=== PATIENT | female | born 1965 | race Caucasian/White ===

== ENCOUNTER 2022-11-05 13:33 | Outpatient (REF) | payer MEDICARE, MEDICAID, SELFPAY ==
--- NOTE | ~2022-11-05 | US_ITS ---
EXAMINATION: US SOFT TISSUE EXTREMITY CLINICAL INFORMATION: Palpable abnormality in the right upper arm. COMPARISON: None TECHNIQUE: Linear transducer grayscale and color Doppler examination with attention to the region of the right upper arm. FINDINGS: The region of the palpable lump is a mildly heterogeneous focus, mildly echogenic relative to adjacent subcutaneous fat with smooth margins measuring approximately 5.6 x 3.1 x 2.2 cm. Color Doppler showed no abnormal vascular flow. US/US extremity nonvascular sapp IMPRESSION: Probable lipoma demonstrating benign features and correlates with the palpable lump. * If these findings persist or enlarge, short-term repeat targeted soft tissue ultrasound can be performed as clinically indicated to assess for change.
== END 2022-11-05 13:34 | disposition home or self-care (01) ==
LOC: HO.HMGCX 13:33
PROVIDERS: PCP Pediatrics; Visit Provider Family Medicine
DX: M79.89 Other specified soft tissue disorders (principal)
CPT/HCPCS: 76882

== ENCOUNTER 2022-11-26 08:46 | Outpatient (AMB) | payer MEDICARE, MEDICAID, SELFPAY ==
--- NOTE | 2022-11-26 08:48 | AM.OFFWIN_ITS ---
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 Reporting symptoms of sinus congestion, sore throat and difficulty swallowing. Low-grade fever. No family member is sick. No recent travel. Patient reports symptoms of malaise and fatigue. PFSH Social History Patient Tobacco Use Status: Current someday Tobacco user Physical Exam Vital Signs: Last Vital Signs Temp 98 F 11/26/22 08:49 Pulse 101 H 11/26/22 08:49 BP 100/58 L 11/26/22 08:49 Pulse Ox 93 11/26/22 08:49 Oxygen Delivery Method Room Air 11/26/22 08:49 BMI result Body Mass Index 28.2 Assessment & Plan Assessment & Plan (1) Upper respiratory tract infection: Code(s): J06.9 - Acute upper respiratory infection, unspecified Plan: Antibiotics ordered. Increase fluid intake. Tylenol for aches and pains. If symptoms worsen, follow-up here for a recheck. Coding Level of Care Code Est Pt Level 3 (27168) Diagnoses Upper respiratory tract infection J06.9
[2022-11-26 08:49] VITALS: BP 100/58; PULSE 101; TEMP 36.6; O2SAT 93; BMI 28.2
== END 2022-11-26 10:13 | disposition home or self-care (01) ==
PROVIDERS: PCP Pediatrics; Visit Provider Internal Medicine
DX: J06.9 Acute upper respiratory infection, unspecified (principal)
CPT/HCPCS: 99213

== ENCOUNTER 2023-01-28 08:51 | Outpatient (REF) | payer MEDICARE, MEDICAID, SELFPAY ==
[2023-01-28 14:50] LABS: MANUAL DIFF FLAG NO
[2023-01-28 14:56] LABS: Basophils Absolute Auto 0.1 X10*3/uL (0.0-0.2); Basophils Percent Auto 0.9 % (0-2); Eosinophils Absolute Auto 0.1 X10*3/uL (0.0-0.4); Eosinophils Percent Auto 1.1 % (0-4); Hematocrit 39.1 % (37.0-47.0); Hemoglobin 12.4 g/dl (12.0-16.0); Imm Gran Abs Auto 0.02 X10*3/uL (0.00-0.03); Imm Gran Pct Auto 0.4 % (0.0-0.4); Lymphocytes Absolute Auto 2.5 X10*3/uL (1.2-4.9); Lymphocytes Percent Auto 43.8 % (20-40); Mean Corpuscular HGB Conc 31.7 g/dl (31.0-35.0); Mean Corpuscular Volume 100.8 fL (80.0-98.0); Mean Platelet Volume 9.4 fL (9.4-12.3); Monocytes Absolute Auto 0.4 X10*3/uL (0.1-1.2); Monocytes Percent Auto 7.4 % (2-11); Neutrophils Absolute Auto 2.7 x10*3/uL (2.0-8.3); Neutrophils Percent Auto 46.4 % (45-73); Platelet Count 608 X10*3/uL (160-400); Red Blood Count 3.88 X10*6/uL (4.20-5.50); White Blood Count 5.7 X10*3/uL (4.8-10.8)
[2023-01-28 15:02] LABS: Estimated Average Glucose 97 mg/dL
[2023-01-28 15:27] LABS: Alanine Aminotransferase 28 U/L (0-31); Alkaline Phosphatase 79 U/L (39-117); Anion Gap 16 (12-20); Aspartate Amino Transferase 24 U/L (5-31); Bilirubin Direct 0.2 mg/dL (0.0-0.5); Bilirubin Total 0.4 mg/dL (0.0-1.0); Blood Urea Nitrogen 14 mg/dL (9-16); Calcium 10.7 mg/dL (8.4-10.2); Carbon Dioxide 25 mmol/L (22-29); Chloride 105 mmol/L (96-108); Cholesterol 192 mg/dL (<200); Estimated Glomerular Filt Rate > 60; Glucose Fasting 80 mg/dL (60-99); HDL Cholesterol 39 mg/dL (>40); LDL Cholesterol Calculated 123 mg/dL (<100); Potassium 4.3 mmol/L (3.3-5.1); Sodium 142 mmol/L (135-145); TSH reflex Free T4 3.23 uIU/mL (0.32-4.0); Total Protein 7.8 g/dL (6.5-8.0); Triglycerides 152 mg/dL (<150); Vitamin D 25-OH Total 29.5 ng/mL (>30)
[2023-01-30 07:57] LABS: HBS Num1 1.49 mIU/mL (0-7.99); HBsAGNum1 0.55 S/CO (0.00-0.99); Hepatitis A Antibody IgM 0.21 Index (0-0.79); Hepatitis B Core Antibody Nonreactive (Nonreactive); Hepatitis B Surface Antigen Negative (Negative); ~HepC Num1 0.14 S/CO (0.00-0.79); ~Hepatitis A Antibody IgM Nonreactive (Nonreactive); ~Hepatitis B Surface Antibody NONREACTIVE (Nonreactive); ~Hepatitis C Antibody Nonreactive (Nonreactive)
== END 2023-01-28 08:52 | disposition home or self-care (01) ==
LOC: HO.CHCLDS 08:51
PROVIDERS: Visit Provider Pediatrics
DX: Z00.00 Encounter for general adult medical examination without abnormal findings (principal); E66.3 Overweight; Z20.2 Contact with and (suspected) exposure to infections with a predominantly sexual mode of transmission; Z11.59 Encounter for screening for other viral diseases; Z72.89 Other problems related to lifestyle
CPT/HCPCS: 36415; 80048; 80061; 80076; 82306; 83036; 84443; 85025; 86704; 86706; 86709; 86803; 87340

== ENCOUNTER 2024-07-16 10:49 | Emergency (ER) | payer MEDICARE, MEDICAID, SELFPAY ==
--- NOTE | ~2024-07-16 | CT_ITS ---
CLINICAL HISTORY: abd pain diarrhea CT abdomen and pelvis with contrast Comparison: CT - CT ABDOMEN PELVIS W IV CON - 07/16/24 12:18 EDT Findings: Mild patchy left basilar airspace opacity. Gallbladder is within normal limits. Solid organs are within normal limits. No urolithiasis. No bowel obstruction, pneumoperitoneum, or pneumatosis. Pelvic contents unremarkable. Normal appendix. The bones are intact. IMPRESSION: 1. Mild left basilar pneumonia. This document has been electronically signed by: Mariya Naqvi MD on 07/16/2024 13:23:40
[2024-07-16 10:54] VITALS: BP 138/88; PULSE 85; RESP 16; TEMP 36.6; O2SAT 98; BMI 36.0
--- NOTE | 2024-07-16 11:10 | ED.GENADULT ---
HPI - General Adult General Chief complaint: General Medical Stated complaint: blood in stool Time Seen by Provider: 07/16/24 11:09 Source: patient Mode of arrival: ambulatory Limitations: no limitations History of Present Illness ED Provider: Nick LIM narrative: Patient is a 58-year-old female presents today with having diarrhea for the last 5 days. Patient now noticed blood. She took a picture of it. The stool otherwise was yellow in color. Patient denies any traveling history. No fever no chills no history of colonoscopy. Patient is from home. Have some pain that radiates from the back to the front. Patient denies any recent antibiotics. Denies any sick contact. Patient is from home. Related Data Home Medications ?Medication ?Instructions ?Recorded ?Confirmed gabapentin 300 mg capsule 300 mg PO TID 11/26/22 11/26/22 naproxen 500 mg tablet 500 mg PO BID 11/26/22 11/26/22 Previous Rx's ?Medication ?Instructions ?Recorded albuterol sulfate 90 mcg/actuation 1 inh inhalation QID PRN shortness 11/26/22 aerosol inhaler (Ventolin HFA) of breath or wheezing #8.5 grams azithromycin 250 mg tablet See Rx Instructions PO .COMPLEX #6 11/26/22 tabs prednisone 20 mg tablet 60 mg (3 x 20 mg) PO DAILY #9 tabs 11/26/22 levofloxacin 500 mg tablet 500 mg PO DAILY #7 tabs 07/16/24 Allergies Allergy/AdvReac Type Severity Reaction Status Date / Time No Known Allergies Allergy Verified 07/16/24 10:56 [No Known Allergies*] Review of Systems Review of Systems: No fever no chills no diaphoresis. No recent history of colonoscopy or endoscopy. Yes all other systems are reviewed and are negative PMFSH Past Medical History Attestation statement: The following information was validated with the patient. Social History Social History Alcohol intake: current Alcohol intake frequency: a few times a week Patient Tobacco Use Status: Current someday Tobacco user Smoked in Last 30 Days: Yes Use of substances other than those prescribed or required for medical reasons: No Advance Directives: No Advance Directives Information Provided: No Do you have a plan to hurt others: No Plan Physical Exam ED Vital Signs: Vital Signs - 24 hr 07/16/24 10:54 07/16/24 11:34 07/16/24 11:35 Temperature 97.9 F Pulse Rate 85 78 89 Respiratory Rate 16 Blood Pressure 138/88 102/71 130/82 Pulse Oximetry 98 Oxygen Delivery Method Room Air 07/16/24 11:36 07/16/24 12:51 Temperature Pulse Rate 84 80 Respiratory Rate 16 Blood Pressure 136/78 114/72 Pulse Oximetry 96 Oxygen Delivery Method Room Air BMI result Body Mass Index 36.0 Appearance: Alert. Oriented X3. No acute distress. Eyes: Pupils equal, round and reactive to light. ENT: Pharynx normal. Neck: Normal inspection. Neck supple. No lymph nodes noted. No crepitus CVS: Normal heart rate and rhythm. Pulses normal. Normal S1 and S2 Respiratory: No respiratory distress. Breath sounds normal. No Wheezing. No rales Abdomen: Soft and nontender. No rigidity. No distention. good BS x4 Rectal exam done with nurse present. It shows just mucus. No gross blood noted. Skin: Skin warm and dry. Normal skin color. Normal skin turgor. Extremities: No lower extremity edema. Neurovascular intact to all extremities. No Lacerations. No Rash Neuro: Oriented X 3. No motor deficit. No sensory deficit. Moving all extermities. No slurred speech Medications Administered Discontinued Medications Generic Name Dose Route Start Last Admin Trade Name Freq PRN Reason Stop Dose Admin Sodium Chloride 1,000 mls @ 999 mls/hr 07/16/24 11:30 07/16/24 12:48 Ns IV 07/16/24 12:30 Infused .Q1H1M SCOTTY Infusion Iohexol 100 ml 07/16/24 12:34 07/16/24 12:35 Iohexol 350 Mg/Ml 100 Ml Infus..Btl IV 07/16/24 12:35 85 ml ONCE ONE Administration Medical Decision Making Medical Decision Making MDM Narrative: patient not on blood thinners. Been having diarrhea for few days now noticing blood in the stool. Patient rectal exam showed just mucus. We did try to [facility] for guaiac but they could not do it properly. Patient's hemoglobin today is 14.2. Baseline is 12. LFTs are normal. Patient's urine showed positive nitrate trace leukocyte esterase lots of contamination and some bacteria. the chest CT abdomen pelvis showed a question infiltrate at the left base. Given the bloody diarrhea the possible pneumonia and the possible UTI. Elected to start patient on Levaquin to cover all 3. Have patient follow-up on an outpatient basis a she is well-appearing. Currently in stable condition. Differential Diagnosis Differential Diagnoses: The differential diagnosis associated with the presentation includes Colitis, GI bleed, UTI Admission/Observation Consideration of admission/observation: Escalation of care including admission/observation considered Lab Data MDM Lab Attestation statement: I reviewed the patient's lab results. 07/16/24 11:11 07/16/24 11:30 Labs: Lab Results 07/16/24 07/16/24 07/16/24 Range/Units 11:11 11:30 11:43 WBC 8.4 (4.8-10.8) X10*3/uL RBC 3.99 L (4.20-5.50) X10*6/uL Hgb 14.2 (12.0-16.0) g/dl Hct 41.1 (37.0-47.0) % MCV 103.0 H (80.0-98.0) fL MCH 35.6 H (27.0-33.0) pg MCHC 34.5 (31.0-35.0) g/dl RDW 13.4 (11.0-16.0) % Plt Count 293 D (160-400) X10*3/uL MPV 8.8 L (9.4-12.3) fL Immature Gran % (Auto) 0.4 (0.0-0.4) % Neut % (Auto) 66.1 (45-73) % Lymph % (Auto) 24.3 (20-40) % [place] % (Auto) 6.5 (2-11) % Eos % (Auto) 2.0 (0-4) % Baso % (Auto) 0.7 (0-2) % Lymph # (Auto) 2.0 (1.2-4.9) X10*3/uL [place] # (Auto) 0.5 (0.1-1.2) X10*3/uL Eos # (Auto) 0.2 (0.0-0.4) X10*3/uL Baso # (Auto) 0.1 (0.0-0.2) X10*3/uL Abs Immat Gran (auto) 0.03 (0.00-0.03) X10*3/uL Absolute Neuts (auto) 5.5 (2.0-8.3) x10*3/uL Absolute Nucleated RBC 0.000 (0.0-0.012) X10*3/uL Nucleated RBC % (auto) 0.0 (0.0-0.2) /100WBC Hold Purple Top SEE NOTE PT 11.2 (10.9-12.4) SEC INR 1.0 (0.9-1.1) Sodium 141 (135-145) mmol/L Potassium 4.0 (3.3-5.1) mmol/L Chloride 111 H (96-108) mmol/L Carbon Dioxide 23 (22-29) mmol/L Anion Gap 11 L (12-20) BUN 18 H (9-16) mg/dL Creatinine 0.94 (0.5-1.4) mg/dL Estim Creat Clear Calc 72.1 Estimated GFR > 60 Random Glucose 99 (60-115) mg/dL Calcium 8.9 D (8.4-10.2) mg/dL Total Bilirubin 0.7 (0.0-1.0) mg/dL Direct Bilirubin 0.2 (0.0-0.5) mg/dL AST 38 H (5-31) U/L ALT 39 H (0-31) U/L Alkaline Phosphatase 71 (39-117) U/L Total Protein 7.3 (6.5-8.0) g/dL Albumin 4.4 (3.5-5.0) g/dL Lipase 26 (8-78) U/L Urine Color Yellow Urine Appearance Cloudy Urine pH 5.5 (5.0-9.0) Ur Specific [place] >= 1.030 H (1.005-1.025) Urine Protein 30 (1+) H (Neg-Trace) mg/dL Urine Glucose (UA) Negative (Negative) mg/dL Urine Ketones Trace (Negative) mg/dL Urine Blood Negative (Negative) Urine Nitrite Positive H (Negative) Ur Leukocyte Esterase Trace H (Negative) Urine RBC 0-2 (0-2) /HPF Urine WBC 11-20 (0-5) /HPF Ur Squamous Epith Cells 11-20 (0-2) /HPF Urine Bacteria 2+ (None Seen) Hyaline Casts 0-2 (0-2) /LPF Independent Interpretation I performed an independent interpretation of an: CT Scan ( grossly negative) Radiology Impression Discussion of test interpretation with radiology: I have reviewed the radiologist's reading. Social Determinants Patient?s care significantly limited by Social Determinants of Health including: Problems related to primary support group Discharge Plan Discharge Clinical Impression: Colitis, Urinary tract infection, Pneumonia Instructions: Urinary Tract Infection in Women (DC), Acute Diarrhea (ED), Pneumonia (ED) Prescriptions: New levofloxacin 500 mg tablet 500 mg PO DAILY Qty: 7 0RF No Action gabapentin 300 mg capsule 300 mg PO TID naproxen 500 mg tablet 500 mg PO BID azithromycin 250 mg tablet See Rx Instructions PO .COMPLEX Qty: 6 0RF Rx Instructions: take 500 mg today (day 1), then 250 mg for 4 days (days 2-5) PO albuterol sulfate [Ventolin HFA] 90 mcg/actuation HFA aerosol inhaler 1 inh inhalation QID PRN (Reason: shortness of breath or wheezing) Qty: 8.5 1RF prednisone 20 mg tablet 60 mg PO DAILY Qty: 9 0RF Referrals: Shara Sommers MD [Primary Care Provider] - 07/19/24 Matthew Adler MD [Physician] - 07/19/24 Print Language: Marshallese
--- OUTSIDE RECORDS SUMMARY | 2024-07-16 11:13 | XMS_ITS | Encounter Summary ---
Author Organization [employer] Address [address] [place] [address] 7 [place] [address] Care Team Providers Care Utilization Management Nurse Name Role Phone Shara Sommers MD Primary Care Provider [phone] Shara Sommers MD Primary Care Provider [phone] Reason for Visit * Reason Comments Med Refill Encounter Details Date Type Department Care Team (Late st Contact Info) Description 10/07/2022 Refill [facility] MEDICINE [address] [place] [address] Shara Sommers MD [address] [place], [place] [phone] Chronic bilateral low back pain with bilateral sciatica Social History Tobacco Use Types Packs/Day Years Used Date Smoking Tobacco: Never Assessed Depression Answer Date Recorded Patient Health Questionnaire-9 Score 2 07/16/2022 Depression Answer Date Recorded Patient Health Questionnaire-2 Score 0 07/16/2022 Comments Unknown Sex and Gender Information Value Date Recorded Sex Assigned at Female 02/10/2022 10:20 AM EDT Legal Sex Female 10:20 AM EDT Gender Identity Female 04/08/2022 7:08 PM EST Sexual Orientation Straight 07/16/2022 10 :39 AM EDT documented as of this encounter Plan of Treatment Not on file documented as of this encounter Visit Diagnoses Diagnosis Chronic bilateral low back pain with bilateral sciatica documented in this encounter Additional Health Concerns Assessment Noted Time PHQ-9 Depression Total Score: 2 07/17/19 23 11:34 AM EDT documented as of this encounter Care Teams Utilization Management Nurse Relationship Specialty Start Date End Date Shara Sommers MD [address] [place], [place] [phone] PCP - General Family Medicine 04/13/18 05/03/23 Shara Sommers MD [address] [place] [address] PCP - General Internal Medicine 05/04/23 documented as of this encounter
--- OUTSIDE RECORDS SUMMARY | 2024-07-16 11:13 | XMS_ITS | Encounter Summary ---
Author Organization [employer] Address [address] [facility] 7t [place] [address] Care Team Providers Care Clother In Name Role Phone Shara Sommers MD Primary Care Provider [phone] Shara Sommers MD Primary Care Provider [phone] Reason for Visit * Reason Onset Date Comments Med Refill 09/04/2022 Encounter Details Date Type Department Care Team (Late st Contact Info) Description 09/04/2022 Refill [facility] MEDICINE [address] [place] [address] Shara Sommers MD [address] [place], [place] [phone] Chronic bilateral low back pain with bilateral [...] AM EDT documented as of this encounter Miscellaneous Notes * Telephone Encounter - Stella Parker - 09/04/2022 2:44 PM EDT Tc from Pt requesting a med refill for medication Gabapentin 300mg. Pt is requesting [address] Sommers documented in this encounter Plan of Treatment Not on file documented as of this encounter Visit Diagnoses Diagnosis Chronic bilateral low back pain with bilateral sciatica documented in this encounter Additional Health Concerns Assessment Noted Time PHQ-9 Depression Total Score: 2 07/17/19 23 11:34 AM EDT documented as of this encounter Care Teams Clother In Relationship Specialty Start Date End Date Shara Sommers MD [address] [place] [address] PCP - General Family Medicine 04/13/18 05/03/23 Shara Sommers MD [address] [place] [address] PCP - General Internal Medicine 05/04/23 documented as of this encounter
--- OUTSIDE RECORDS SUMMARY | 2024-07-16 11:13 | XMS_ITS | Encounter Summary ---
Author Organization [employer] Address [address] [facility] 7t [place] [address] Care Team Providers Care Arc Air Operator Name Role Phone Shara Sommers MD Primary Care Provider Encounter Details Date Type Department Care Team (Late st Contact Info) Description 05/18/2023 Telephone [facility] MEDICINE [address] [place] [address] Shara Sommers MD [address] [place], [place] [phone] Social History Tobacco Use Types Packs/Day Years Used Date Smoking Tobacco: Never Passive Smoke Exposure: Never Smokeless Tobacco: Never Alcohol Use Standard Drinks/Week Comments Never 0 (1 standard drink = 0.6 oz pur e alcohol) Depression Answer Date Recorded Patient Health Questionnaire-9 Score 2 07/16/2022 Housing Stability Answer Date Recorded What is your housing situation today? I have dakota james 01/28/[address] you li ve. Do you have problems with any of the following? None of the above 01/28/2023 Food Insecurity Answer Date Recorded Within the past 12 months, y ou worried that your food would run out before you got money to buy more: Sometimes True 2022 Within the past 12 months,th e food you bought just didn't last and you didn't have enough money to get more: Never True 01/28/2023 Transportation Answer Date Recorded In the past 12 months, has l ack of transportation kept you from medical appts, meetings, work or from getting things needed for daily living? No 01/28/2023 Utilities Answer Date Recorded In the past 12 months, has t he electric, gas, oil or water company threatened to shut off services in your home? No 01/28/2023 Depression Answer Date Recorded Patient Health Questionnaire-2 [...] documented as of this encounter Visit Diagnoses Not on filedocumented in this encounter Additional Health Concerns Assessment Noted Time PHQ-9 Depression Total Score: 2 07/17/19 23 11:34 AM EDT documented as of this encounter Care Teams Arc Air Operator Relationship Specialty Start Date End Date Shara Sommers MD [address] [place] [address] PCP - General Internal Medicine 05/04/23 documented as of this encounter
--- OUTSIDE RECORDS SUMMARY | 2024-07-16 11:13 | XMS_ITS | Encounter Summary ---
Author Organization [employer] Address [address] [place] [address] 7 [place] [address] Care Team Providers Care Supervisor Post Wave Name Role Phone Shara Sommers MD Primary Care Provider [phone] Shara Sommers MD Primary Care Provider [phone] Reason for Visit * Reason Comments Med Refill Encounter Details Date Type Department Care Team (Late st Contact Info) Description 08/25/2022 Refill [facility] MEDICINE [address] [place] [address] Shara Sommers MD [address] [place], [place] [phone] Chronic bilateral low back pain with bilateral [...] documented as of this encounter Care Teams Supervisor Post Wave Relationship Specialty Start Date End Date Shara Sommers MD [address] [place], [place] [phone] PCP - General Family Medicine 04/13/18 05/03/23 Shara Sommers MD [address] [place] [address] PCP - General Internal Medicine 05/04/23 documented as of this encounter
--- OUTSIDE RECORDS SUMMARY | 2024-07-16 11:13 | XMS_ITS | Encounter Summary ---
Author Organization [employer] Address [address] [facility] 7t [place] [address] Care Team Providers Care Manager Agricultural Name Role Phone Shara Sommers MD Primary Care Provider [phone] Reason for Visit * Reason Comments Med Refill Encounter Details Date Type Department Care Team (Late st Contact Info) Description 08/13/2023 Refill [facility] [address] [place], [place] [phone] Shara Sommers MD [address] [place], [place] [phone] Painful lumpy left breast; Mastitis, left, acute Social History Tobacco Use Types Packs/Day Years Used Date Smoking Tobacco: Never Passive Smoke Exposure: Never Smokeless Tobacco: Never Alcohol Use Standard Drinks/Week Comments Never 0 (1 standard drink = 0.6 oz pur e alcohol) Depression Answer Date Recorded Patient Health Questionnaire-9 Score 2 07/16/2022 Housing Stability Answer Date Recorded What is your housing situation today? I have dakotaolga james 01/28/[address] you [...] as of this encounter Visit Diagnoses Diagnosis Painful lumpy left breast Mastitis, left, acute documented in this encounter Additional Health Concerns Assessment Noted Time PHQ-9 Depression Total Score: 2 07/17/19 23 11:34 AM EDT documented as of this encounter Care Teams Manager Agricultural Relationship Specialty Start Date End Date Shara Sommers MD [address] [place] [address] PCP - General Internal Medicine 05/04/23 documented as of this encounter
--- OUTSIDE RECORDS SUMMARY | 2024-07-16 11:13 | XMS_ITS | Encounter Summary ---
Author Organization [employer] Address [address] [facility] 7 [place] [address] Care Team Providers Care Kiln Tender Name Role Phone Shara Sommers MD Primary Care Provider [phone] Shara Sommers MD Primary Care Provider [phone] Reason for Visit * Reason Onset Date Comments requesting call 11/03/2022 Encounter Details Date Type Department Care Team ([facility] st Contact Info) Description 11/03/2022 Telephone [facility] [address] [place], [place] [phone] Shara Sommers MD [address] [place] [address] requesting call Social History Tobacco Use Types Packs/Day Years [...] encounter Miscellaneous Notes * Telephone Encounter - Afua Quan - 11/03/2022 10:52 AM EDT Tc from pt requesting a call in regards to location on referral for [place]. Aerospace Technician did not see a location. Please contact pt at [phone] documented in this encounter Plan of Treatment Not on file documented as of this encounter Visit Diagnoses Not on filedocumented in this encounter Additional Health Concerns Assessment Noted Time PHQ-9 Depression Total Score: 2 07/17/19 23 11:34 AM EDT documented as of this encounter Care Teams Kiln Tender Relationship Specialty Start Date End Date Shara Sommers MD [address] [place] [address] PCP - General Family Medicine 04/13/18 05/03/23 Shara Sommers MD [address] [place] [address] PCP - General Internal Medicine 05/04/23 documented as of this encounter
--- OUTSIDE RECORDS SUMMARY | 2024-07-16 11:13 | XMS_ITS | Encounter Summary ---
Author Organization [email or web address] Address [address] [facility] 7t [place] [address] Care Team Providers Care Manufacturing Assembler Name Role Phone Shara Sommers MD Primary Care Provider [phone] Reason for Visit * Reason Onset Date Comments Med Refill 10/27/2023 Encounter Details Date Type Department Care Team (Late st Contact Info) Description 10/27/2023 Telephone [facility] MEDICINE [address] [place] [address] Shara Sommers MD [address] [place], [place] [phone] Med Refill Social History Tobacco Use Types Packs/Day Years Used Date Smoking Tobacco: Never Passive Smoke Exposure: Never Smokeless Tobacco: Never Alcohol Use Standard Drinks/Week Comments Never 0 (1 standard drink = 0.6 oz pur e alcohol) Depression Answer Date Recorded Patient Health Questionnaire-9 Score 2 07/16/2022 Housing Stability Answer Date Recorded What is your housing situation today? I have dakota jacob 01/28/[address] you li [...] encounter Miscellaneous Notes * Telephone Encounter - Charles Hernandez - 10/27/2023 9:58 AM EDT TC from pt requesting medication refill. Medications needing refill : gabapentin (Neurontin) 300 MG capsule [facility] be sent to: [id number] [place] - [address] [place] [address] documented in this encounter Plan of Treatment Not on file documented as of this encounter Visit Diagnoses Not on filedocumented in this encounter Additional Health Concerns Assessment Noted Time PHQ-9 Depression Total Score: 2 07/17/19 23 11:34 AM EDT documented as of this encounter Care Teams Manufacturing Assembler Relationship Specialty Start Date End Date Shara Sommers MD [address] [place] [address] [place] [address] PCP - General Internal Medicine 05/04/23 documented as of this encounter
--- OUTSIDE RECORDS SUMMARY | 2024-07-16 11:13 | XMS_ITS | Encounter Summary ---
Author Organization [employer] Address [address] [facility] 7t [place] [address] Care Team Providers Care Tool Mechanic Name Role Phone Shara Sommers MD Primary Care Provider [phone] Reason for Visit * Reason Onset Date Comments Med Refill 12/01/2023 Encounter Details Date Type Department Care Team (Late st Contact Info) Description 12/01/2023 Telephone [facility] MEDICINE [address] [place] [address] Shara Sommers MD [address] [place], [place] [phone] Med Refill Social History Tobacco Use Types [...] encounter Miscellaneous Notes * Telephone Encounter - Ruth Ann Vilchis LPN - 12/01/2023 11:07 AM EDT Medication pended to PCP. * Telephone Encounter - Arturo Almazan - 12/01/2023 10:37 AM EDT TC from pt requesting medication refill. Medications needing refill: gabapentin (Neurontin) 300 MG capsule To be sent to: [id number] - [place] - [address] [place] [address] documented in this encounter Plan of Treatment Not on file documented as of this encounter Visit Diagnoses Not on filedocumented in this encounter Additional Health Concerns Assessment Noted Time PHQ-9 Depression Total Score: 2 07/17/19 23 11:34 AM EDT documented as of this encounter Care Teams Tool Mechanic Relationship Specialty Start Date End Date Shara Sommers MD [address] [place] [address] [place] [address] PCP - General Internal Medicine 05/04/23 documented as of this encounter
--- OUTSIDE RECORDS SUMMARY | 2024-07-16 11:13 | XMS_ITS | Encounter Summary ---
Author Organization [employer] Address [address] [facility] 7t [place] [address] Care Team Providers Care Resident Care Assistant Name Role Phone Shara Sommers MD Primary Care Provider Reason for Visit * Reason Comments Med Refill Encounter Details Date Type Department Care Team (Late st Contact Info) Description 01/27/2024 Refill [facility] [address] [place], [place] [phone] Shara Sommers MD [address] [place], [place] [phone] Chronic bilateral low back pain with bilateral sciatica; Painful lumpy left breast; Mastitis, left, acute [...] bilateral low back pain with bilateral sciatica Painful lumpy left breast Mastitis, left, acute documented in this encounter Additional Health Concerns Assessment Noted Time PHQ-9 Depression Total Score: 2 07/17/19 23 11:34 AM EDT documented as of this encounter Care Teams Resident Care Assistant Relationship Specialty Start Date End Date Shara Sommers MD [address] [place] [address] PCP - General Internal Medicine 05/04/23 documented as of this encounter
--- OUTSIDE RECORDS SUMMARY | 2024-07-16 11:13 | XMS_ITS | Encounter Summary ---
Author Organization [employer] Address 75 [facility] 7t [place] [address] Care Team Providers Care Hydramatic Specialist Name Role Phone Shara Sommers MD Primary Care Provider [phone] Reason for Visit * Reason Onset Date Comments Med Refill 09/21/2023 Encounter Details Date Type Department Care Team (Late st Contact Info) Description 09/21/2023 Telephone [facility] [address] [place] [address] Shara Sommers MD [address] [place], [place] [phone] Med Refill Social History Tobacco Use Types [...] Encounter - Ruth Ann Vilchis LPN - 09/21/2023 10:11 AM EDT Medication pended to provider. * Telephone Encounter - Jade Hoffmann - 09/21/2023 9:55 AM EDT TC from pt requesting medication refill. Medications needing refill : gabapentin (Neurontin) 300 MG capsule To be sent to: [facility]/pharmacy #[id number] - [place] - [address] [place] [address] documented in this encounter Plan of Treatment Not on file documented as of this encounter Visit Diagnoses Not on filedocumented in this encounter Additional Health Concerns Assessment Noted Time PHQ-9 Depression Total Score: 2 07/17/19 23 11:34 AM EDT documented as of this encounter Care Teams Hydramatic Specialist Relationship Specialty Start Date End Date Shara Sommers MD [address] [place] [address] [place] [address] PCP - General Internal Medicine 05/04/23 documented as of this encounter
--- OUTSIDE RECORDS SUMMARY | 2024-07-16 11:13 | XMS_ITS | Encounter Summary ---
Author Organization [employer] Address 75 [facility] 7t [place] [address] Care Team Providers Care Operations Manager/Coordinator Name Role Phone Shara Sommers MD Primary Care Provider Reason for Visit * Reason Onset Date Comments Med Refill 05/18/2023 Encounter Details Date Type Department Care Team (Late st Contact Info) Description 05/18/2023 Telephone [facility] [address] [place] [address] Shara Sommers MD [address] [place], [place] [phone] Med Refill Social History Tobacco Use Types [...] encounter Miscellaneous Notes * Telephone Encounter - Jade Hoffmann - 05/18/2023 10:14 AM EST TC from pt requesting medication refill. Medications needing refill : Gabapentin (Neurontin) 300 MG capsule To be sent to: [facility]/pharmacy #[id number] - [place] - [address] [facility] documented in this encounter Plan of Treatment Not on file documented as of this encounter Visit Diagnoses Not on filedocumented in this encounter Additional Health Concerns Assessment Noted Time PHQ-9 Depression Total Score: 2 07/17/19 23 11:34 AM EDT documented as of this encounter Care Teams Operations Manager/Coordinator Relationship Specialty Start Date End Date Shara Sommers MD [address] [facility] [place] [address] PCP - General Internal Medicine 05/04/23 documented as of this encounter
--- OUTSIDE RECORDS SUMMARY | 2024-07-16 11:13 | XMS_ITS | Encounter Summary ---
Author Organization [employer] Address 75 [facility] 7t [place] [address] Care Team Providers Care Group Reservations Coordinator Name Role Phone Shara Sommers MD Primary Care Provider [phone] Encounter Details Date Type Department Care Team ([facility] st Contact Info) Description 06/15/2023 Telephone C [facility] [address] [place], [place] [phone] Shara Sommers MD [address] [place], [place] [phone] Social History Tobacco Use Types Packs/Day Years [...] encounter Miscellaneous Notes * Telephone Encounter - Wing Clara RN - 06/15/2023 2:00 PM EST Tc to pt updating her about PCP's suggestion to go to [facility] or [facility]. Pt states she wants both the US and mammo done at [facility]. Stated that information would be relayed to PCP. Pt verbalizes understanding and agreement with plan. * Telephone Encounter - Wing Clara RN - 06/15/2023 1:35 PM EST Please see message below. Tc to pt regarding records needed for mammo and US. States medical records has images of previous mammo but they can't fax them to [facility]. Pt states the location where she got her last mammo does not exist anymore. Please advise. * Telephone Encounter - Wing Clara RN - 06/15/2023 12:32 PM EST Please review message below, unsure why prior is required. No previous found in [facility] or [facility]. * Telephone Encounter - Jie Jacobsen - 06/15/2023 10:52 AM EST Tc from pt calling in to inform referral to get mammogram done at [facility] is requesting prior images . Pt states they will not book appt . Pt would like a call back to discuss . documented in this encounter Plan of Treatment Not on file documented as of this encounter Visit Diagnoses Not on filedocumented in this encounter Additional Health Concerns Assessment Noted Time PHQ-9 Depression Total Score: 2 07/17/19 23 11:34 AM EDT documented as of this encounter Care Teams Group Reservations Coordinator Relationship Specialty Start Date End Date Shara Sommers MD [address] [place] [id number] PCP - General Internal Medicine 05/04/23 documented as of this encounter
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
[2024-07-16 11:16] LABS: MANUAL DIFF FLAG NO
[2024-07-16 11:18] LABS: Basophils Absolute Auto 0.1 X10*3/uL (0.0-0.2); Basophils Percent Auto 0.7 % (0-2); Eosinophils Absolute Auto 0.2 X10*3/uL (0.0-0.4); Hematocrit 41.1 % (37.0-47.0); Hemoglobin 14.2 g/dl (12.0-16.0); Imm Gran Abs Auto 0.03 X10*3/uL (0.00-0.03); Imm Gran Pct Auto 0.4 % (0.0-0.4); Lymphocytes Percent Auto 24.3 % (20-40); Mean Corpuscular HGB Conc 34.5 g/dl (31.0-35.0); Mean Corpuscular Hemoglobin 35.6 pg (27.0-33.0); Mean Platelet Volume 8.8 fL (9.4-12.3); Monocytes Absolute Auto 0.5 X10*3/uL (0.1-1.2); Monocytes Percent Auto 6.5 % (2-11); Neutrophils Absolute Auto 5.5 x10*3/uL (2.0-8.3); Neutrophils Percent Auto 66.1 % (45-73); Platelet Count 293 X10*3/uL (160-400); Red Blood Count 3.99 X10*6/uL (4.20-5.50); Red Cell Distribution Width 13.4 % (11.0-16.0); White Blood Count 8.4 X10*3/uL (4.8-10.8)
[2024-07-16 11:34] VITALS: BP 102/71; PULSE 78
[2024-07-16 11:35] VITALS: BP 130/82; PULSE 89
[2024-07-16 11:36] VITALS: BP 136/78; PULSE 84
[2024-07-16] MEDS: 0.9 % Sodium Chloride 1,000 ML 999 ML IV (11:44)
[2024-07-16 11:45] LABS: Prothrombin Time 11.2 SEC (10.9-12.4)
[2024-07-16 11:53] LABS: Alanine Aminotransferase 39 U/L (0-31); Albumin Level 4.4 g/dL (3.5-5.0); Alkaline Phosphatase 71 U/L (39-117); Anion Gap 11 (12-20); Aspartate Amino Transferase 38 U/L (5-31); Bilirubin Direct 0.2 mg/dL (0.0-0.5); Bilirubin Total 0.7 mg/dL (0.0-1.0); Blood Urea Nitrogen 18 mg/dL (9-16); Calcium 8.9 mg/dL (8.4-10.2); Carbon Dioxide 23 mmol/L (22-29); Chloride 111 mmol/L (96-108); Creatinine Clr Calc Pharmacy 72.1; Estimated Glomerular Filt Rate > 60; Glucose Random 99 mg/dL (60-115); Lipase 26 U/L (8-78); Sodium 141 mmol/L (135-145); Total Protein 7.3 g/dL (6.5-8.0)
[2024-07-16 11:57] LABS: Appearance Urine Cloudy; Color Urine Yellow; Glucose Urine UA Negative (Negative); Leukocyte Esterase Urine Trace (Negative); Nitrite Urine Positive (Negative); PH 5.5 (5.0-9.0); Specific Gravity - Urine >= 1.030 (1.005-1.025); UMIC TRIGGER UACC YES; Urine Blood Negative (Negative); Urine Ketones Trace mg/dL (Negative); Urine Protein 30 (1+) mg/dL (Neg-Trace)
--- NOTE | 2024-07-16 11:58 | PC.NURSE ---
Lab called and states not enough specimen on occult care, Dr Romero and primary RN aware. Plan to await bowel movement to obtain further spec
[2024-07-16 12:06] LABS: Bacteria Urine 2+ (None Seen); Hyaline Casts Urine 0-2 /LPF (0-2); RBC Urine 0-2 /HPF (0-2); UACC Culture Trigger YES
[2024-07-16] MEDS: iohexoL 350 MG/ML 100 ML INFUS..BTL IV (12:35)
[2024-07-16 12:51] VITALS: BP 114/72; PULSE 80; RESP 16; O2SAT 96
[2024-07-16] MEDS: levoFLOXacin 500 MG TABLET PO (15:20)
== END 2024-07-16 15:46 | disposition home or self-care (01) ==
LOC: HO.ED 11:11
PROVIDERS: Physician Assistant Medical; Emergency Provider Emergency Medicine Emergency Medical Services; PCP Pediatrics
DX: K52.9 Noninfective gastroenteritis and colitis, unspecified (principal); N39.0 Urinary tract infection, site not specified; J18.9 Pneumonia, unspecified organism; R10.9 Unspecified abdominal pain; F17.210 Nicotine dependence, cigarettes, uncomplicated; Z79.899 Other long term (current) drug therapy
CPT/HCPCS: 36415; 74177; 80053; 81001; 82248; 83690; 85025; 85610; 87086; 96360; 99284; Q9967

== ENCOUNTER → 2024-07-16 11:26 | Outpatient (BNV) | payer MEDICARE, MEDICAID, SELFPAY | PROVIDERS: Emergency Provider Emergency Medicine Emergency Medical Services; PCP Pediatrics; Visit Provider Radiology Diagnostic Radiology | DX: J18.9 Pneumonia, unspecified organism (principal) | CPT/HCPCS: 74177 ==